=== PATIENT | female | born 1990 | race African-American/Black ===

== ENCOUNTER 2019-09-02 22:24 | Emergency (ER) | payer MEDICAID ==
[2019-09-02] MEDS ORDERED: METOCLOPRAMIDE HCL INJ/PF 10 MG/2 ML SDV IV ONE (22:38)
[2019-09-02] MEDS ORDERED: NORMAL SALINE 1000 ML 1,000 ML IV ONE (22:38)
--- NOTE | 2019-09-02 22:39 | ER Document Report ---
ED Medical Screen (RME) - General Chief Complaint: Nausea/Vomiting Stated Complaint: NAUSEA/VOMITING Notes: Patient is a 29-year-old -[place] female who is G1, P0 at approximately 13 weeks gestation who presents to the emergency department the chief complaint of nausea and vomiting and inability to tolerate oral intake for the past 24 hours. States with any attempted oral intake she vomits. States if she does not eat or drink she feels less nauseous and does not vomit. She is tried crackers, Gatorade, propel without any significant improvement. She is not discussed this with her [facility] or tried any medications. She denies any abdominal pain or vaginal bleeding. Denies any urinary symptoms. I have treated and performed a rapid initial assessment of this patient. A comprehensive ED assessment and evaluation of the patient, analysis of test res ults and completion of medical decision making process will be conducted by additional ED providers. PHYSICAL EXAMINATION: GENERAL: Well-appearing, well-nourished and in no acute distress. A&Ox4. Answers questions appropriately. Physical Exam - Vital signs Vitals: Temp Pulse Resp BP Pulse Ox 98.8 F 99 20 127/84 H 99 09/02/19 22:35 09/02/19 22:35 09/02/19 22:35 09/02/19 22:35 09/02/19 22:35 Course - Vital Signs Vital signs: Temp Pulse Resp BP Pulse Ox 98.8 F 99 20 127/84 H 99 09/02/19 22:35 09/02/19 22:35 09/02/19 22:35 09/02/19 22:35 09/02/19 22:35
--- NOTE | 2019-09-02 23:20 | ER Document Report ---
ED GI/ - General Chief Complaint: Nausea/Vomiting Stated Complaint: NAUSEA/VOMITING Time Seen by Provider: 09/02/19 23:11 Notes: Patient is a 29-year-old female, at 13 weeks gestation by first trimester ultrasound, that comes emergency department for chief complaint of nausea and vomiting. She states she vomited 15 times over the past day. She states that she mainly only vomits with food or drinking, if she does not eat or drink she feels improved. She is not on any medications except vitamins. She denies fever, abdominal pain except for occasional cramping, flank pain, chest pain, vaginal bleeding or discharge. Only reported surgery is dental surgery. - Related Data Allergies/Adverse Reactions: No Known Allergies Allergy (Unverified 09/02/19 22:40) Past Medical History - General Information source: Patient - Social History Smoking Status: Never Smoker Frequency of alcohol use: None Drug Abuse: None Lives with: Family Family History: Reviewed & Not Pertinent Patient has suicidal ideation: No Patient has homicidal ideation: No - Medical History Medical History: Negative Surgical Hx: Negative - Immunizations Immunizations up to date: Yes Hx Diphtheria, Pertussis, Tetanus Vaccination: Yes Review of Systems - Review of Systems Constitutional: No symptoms reported EENT: No symptoms reported Cardiovascular: No symptoms reported Respiratory: No symptoms reported Gastrointestinal: See HPI Genitourinary: No symptoms reported Female Genitourinary: See HPI Musculoskeletal: No symptoms reported Skin: No symptoms reported Hematologic/Lymphatic: No symptoms reported Neurological/Psychological: No symptoms reported Physical Exam - Vital signs Vitals: Temp Pulse Resp BP Pulse Ox 98.8 F 99 20 127/84 H 99 09/02/19 22:35 09/02/19 22:35 09/02/19 22:35 09/02/19 22:35 09/02/19 22:35 - Notes Notes: GENERAL: Alert, interacts well. No acute distress. HEAD: Normocephalic, atraumatic. EYES: Pupils equal, round, and reactive to light. Extraocular movements intact. ENT: Oral mucosa very dry, tongue midline. Oropharynx unremarkable. Airway patent. NECK: Full range of motion. Supple. Trachea midline. No lymphadenopathy. LUNGS: Clear to auscultation bilaterally, no wheezes, rales, or rhonchi. No respiratory distress. Non-tender chest wall. HEART: Regular rate and rhythm. No murmur ABDOMEN: Soft, non-tender. Non-distended. Bowel sounds present in all 4 quadrants. GENITOURINARY: Deferred EXTREMITIES: Moves all 4 extremities spontaneously. No edema, normal radial and dorsalis pedis pulses bilaterally. No cyanosis. BACK: no cervical, thoracic, lumbar midline tenderness. No saddle anesthesia, normal distal neurovascular exam. Moves all extremities in full range of motion. NEUROLOGICAL: Alert and oriented x3. Normal speech. Cranial nerves II through XII grossly intact. Strength 5/5 in all extremities. PSYCH: Normal affect, normal mood. SKIN: Warm, dry, normal turgor. No rashes or lesions noted. Course - Re-evaluation Re-evalutation: Patient has a soft benign abdomen, she is alert and well-appearing except for dry mucous membranes. She is not tachycardic, she has no fever. CBC unremarkable, chemistry unremarkable, test positive, hCG ordered in triage is nonspecific. Urinalysis shows ketones and elevated specific gravity. Patient has no bleeding, has no abdominal pain, no other complaints. After IV fluids, Reglan, patient had complete resolution of symptoms. Patient drink fluids, ate crackers, states he feels much better. Patient improved on reevaluation, got 1 more bolus of IV fluids, requesting Reglan at home. Provided with this, discussed follow-up and return precautions, patient states understanding and agreement with plan. Stable and well-appearing at time of discharge. - Vital Signs Vital signs: Temp Pulse Resp BP Pulse Ox 98.2 F 80 16 122/80 99 09/03/19 01:56 09/03/19 01:56 09/03/19 01:56 09/03/19 01:56 09/03/19 01:56 - Laboratory Result Diagrams: 09/02/19 23:44 09/02/19 23:44 Laboratory results interpreted by me: 09/02/19 09/02/19 09/02/19 23:00 23:44 23:44 MCV 71 L MCH 23.8 L Sodium 134.3 L Creatinine 0.46 L Phosphorus 4.7 H Beta HCG, Quant 77599.00 H Urine Protein 100 H Urine Ketones 80 H Urine Ascorbic Acid 40 H Discharge - Discharge Clinical Impression: Dehydration, Nausea/vomiting in Condition: Stable Disposition: HOME, SELF-CARE Additional Instructions: You have been treated for dehydration today. Start with bland food, take Reglan nausea medication if needed, you can also take [id number] diphenhydramine with this for good results. Follow-up with [facility] for additional management. Return if you worsen including uncontrolled vomiting, severe abdominal pain, fever, or any other concerning or worsening symptoms. Prescriptions: Metoclopramide HCl [Reglan] 5 mg PO ASDIR PRN #30 tablet PRN Reason:
[2019-09-02 23:39] LABS: APPEARANCE,URINE SLIGHTLY-CLOUDY; BILIRUBIN,URINE NEGATIVE (NEGATIVE); COLOR,URINE YELLOW; GLUCOSE, URINE NEGATIVE (NEGATIVE); KETONES,URINE 80 mg/dL (NEGATIVE); PROTEIN,URINE 100 mg/dL (NEGATIVE); URINE SPECIFIC GRAVITY 1.029; UROBILINOGEN,URINE NEGATIVE mg/dL (<2.0)
[2019-09-02 23:58] LABS: ABSOLUTE LYMPHOCYTES (AUTO) 1.7 10^3/uL (0.5-4.7); ABSOLUTE MONOCYTES (AUTO) 0.5 10^3/uL (0.1-1.4); ABSOLUTE NEUT (AUTO) 5.2 10^3/uL (1.7-8.2); BASOPHILS % (AUTO) 0.5 % (0-2); EOSINOPHILS % (AUTO) 0.4 % (0-6); HEMATOCRIT 36.1 % (36.0-47.0); HEMOGLOBIN 12.1 g/dL (12.0-15.5); LYMPHOCYTES % (AUTO) 23.1 % (13-45); MEAN CORPUSCULAR HEMOGLOBIN 23.8 pg (27.0-33.4); MEAN CORPUSCULAR HGB CONC 33.5 g/dL (32.0-36.0); MEAN CORPUSCULAR VOLUME 71 fl (80-97); MONOCYTES % (AUTO) 6.9 % (3-13); PLATELET COUNT 242 10^3/uL (150-450); RED CELL DISTRIBUTION WIDTH 13.6 % (11.5-14.0); SEGMENTED NEUTROPHILS % (AUTO) 69.1 % (42-78); TOTAL CELLS COUNTED % (AUTO) 100 %; WHITE BLOOD COUNT 7.6 10^3/uL (4.0-10.5)
[2019-09-03] MEDS ORDERED: NORMAL SALINE 1000 ML 1,000 ML IV ONE (00:11)
[2019-09-03 00:12] LABS: ALBUMIN 4.6 g/dL (3.5-5.0); ALKALINE PHOSPHATASE 74 U/L (38-126); ANION GAP 11 (5-19); ASPARTATE AMINO TRANSFERASE 24 U/L (14-36); BILIRUBIN,TOTAL 0.5 mg/dL (0.2-1.3); BLOOD UREA NITROGEN 7 mg/dL (7-20); CALCIUM 10.1 mg/dL (8.4-10.2); CARBON DIOXIDE 23 mmol/L (22-30); CHLORIDE 100 mmol/L (98-107); GLUCOSE 91 mg/dL (75-110); PHOSPHORUS 4.7 mg/dL (2.5-4.5); TOTAL PROTEIN 8.1 g/dL (6.3-8.2)
[2019-09-03 01:59] VITALS: BP 122/80
== END 2019-09-03 01:59 | disposition home or self-care (01) ==
LOC: ER 22:24
DX: O26.891 Other specified pregnancy related conditions, first trimester (principal); E86.0 Dehydration; O21.9 Vomiting of pregnancy, unspecified; Z3A.13 13 weeks gestation of pregnancy
CPT/HCPCS: 99284; 96361; 96374; 36415; 84702; 83690; 83735; 84100; 85025; 80053; 81001; J2765; J7030 ×2